=== PATIENT | female | born 1990 | race Asian ===

== ENCOUNTER 2016-09-10 11:49 | Inpatient (IN) | payer OTHER ==
[~2016-09-10 11:49] MED LIST: AUGMENTIN875 MG PO; FEOSOL-DPS325 MG PO; GLUCOPHAGE1000 MG PO; KLOR-CON M2020 ME1 PO; LEVEMIR100 UNIT/1 SQ; LIPITOR DPS40 MG PO; NORETHIN-ESTRA1 EAC1 PO; NORETHIND-ETH1 EAC1 PO; NOVOLOG100 UNIT/2 SQ; OMEGA-3 DPS1000 MG PO; PRILOSEC DPS20 MG PO; SYNTHROID DPS0.05 MG PO; TRICOR145 MG PO; VASOTEC DPS2.5 MG PO; ZOFRAN4 MG PO
[2016-09-13] MEDS ORDERED: CALCIUM GLUCONATE IV (09:16)
[2016-09-13] MEDS ORDERED: NORMAL SALINE FL5 ML IV (09:16)
[2016-09-13] MEDS ORDERED: GLUTOSE 1537.5 GM PO (09:17)
[2016-09-13] MEDS ORDERED: PEPCID DPS10 MG/ML IV (09:17)
[2016-09-13] MEDS ORDERED: COLACE-DPS100 MG PO (09:17)
[2016-09-13] MEDS ORDERED: TYLENOL DPS325 MG PO (09:18)
[2016-09-13] MEDS ORDERED: MAALOX DPS30 ML PO (09:18)
[2016-09-13] MEDS ORDERED: GLUCAGON HCL1 MG IM (09:19)
[2016-09-13] MEDS ORDERED: MORPHINE2 MG/ML IV (09:19)
[2016-09-13] MEDS ORDERED: [UNRECOGNIZED DRUG - OTHER] IV (09:19)
[2016-09-13] MEDS ORDERED: ZOFRAN DPS4 MG/2 ML IV (09:20)
== END 2016-09-11 14:55 | disposition short-term general hospital (02) | DRG 439 ==
DX: K85.90 Acute pancreatitis without necrosis or infection, unspecified (principal); E87.2 Acidosis; K76.0 Fatty (change of) liver, not elsewhere classified; E87.6 Hypokalemia; E11.65 Type 2 diabetes mellitus with hyperglycemia; E78.1 Pure hyperglyceridemia; E78.5 Hyperlipidemia, unspecified; E66.9 Obesity, unspecified; Z79.4 Long term (current) use of insulin; Z79.84 Long term (current) use of oral hypoglycemic drugs; Z68.38 Body mass index [BMI] 38.0-38.9, adult